=== PATIENT | female | born 1945 | race Caucasian/White ===

== ENCOUNTER 2020-09-08 21:25 | Inpatient (IN) | payer MEDICARE ==
[2020-09-08 22:42] LABS: Basophils # (A) 0.1 k/uL (0-0.2); Basophils % (A) 1 %; Eosinophils # (A) 0.5 k/uL (0-0.7); Eosinophils % (A) 7 %; HCT 41.2 % (34.0-46.0); HGB 14.1 gm/dL (11.4-16.0); Lymphocytes # (A) 2.5 k/uL (1.0-4.8); Lymphocytes % (A) 34 %; MCH 32.4 pg (25.0-35.0); MCHC 34.2 g/dL (31.0-37.0); MCV 94.9 fL (80.0-100.0); Mean Platelet Volume 7.9; Monocytes # (A) 0.3 k/uL (0-1.0); Monocytes % (A) 4 %; Neutrophils # (A) 3.7 k/uL (1.3-7.7); Neutrophils % (A) 52 %; Platelet Count 115 k/uL (150-450); RBC 4.35 m/uL (3.80-5.40); RDW 13.7 % (11.5-15.5); WBC 7.2 k/uL (3.8-10.6)
[2020-09-08 22:55] LABS: Albumin 4.5 g/dL (3.5-5.0); Calcium 9.4 mg/dL (8.4-10.2); Potassium 3.9 mmol/L (3.5-5.1); Total Bilirubin 1.9 mg/dL (0.2-1.3); Total Protein 7.1 g/dL (6.3-8.2)
[2020-09-08 23:03] LABS: Partial Thromboplastin Time 24.3 sec (22.0-30.0); Prothrombin Time 10.8 sec (9.0-12.0)
--- NOTE | 2020-09-08 23:13 | ED ---
Neuro HPI - General Chief Complaint: Neuro Symptoms/Deficit Stated Complaint: R Side Numbness Time Seen by Provider: 09/08/20 22:03 Source: patient, family Mode of arrival: wheelchair Limitations: physical limitation - History of Present Illness Is the patient presenting with stroke symptoms?: No Last Known Well Date: 09/08/20 Last Known Well Time: 19:30 Initial Comments: 's patient is a 74-year-old woman who presents with complaint of right sided numbness. She states that it had come on tonight at 7:30 while she was painting. She states the symptoms lasted about 20 minutes and resolved spontaneously. She did take aspirin. Patient had similar set of symptoms that had developed on Friday area and she was seen at another hospital where she had evaluation and was found to have hypomagnesemia. She was given dose of magnesium and was discharged. Patient denies headache or chest pain. No other associated symptoms. She does state she feels back at her baseline currently. Location: right face, right arm, right leg History of same: Yes Place: home Severity: mild Quality: numb Improves With: time Worsens With: none On Anticoagulants: No Context: sudden onset Associated Symptoms: denies other symptoms Treatments Prior to Arrival: Aspirin - Related Data Home Medications: Home Medications Medication Instructions Recorded Confirmed Aspirin EC [Ecotrin Low Dose] 81 mg PO HS 09/08/20 09/08/20 Metoprolol Tartrate [Lopressor] 100 mg PO BID 09/08/20 09/08/20 Valsartan 320 mg PO DAILY 09/08/20 09/08/20 allopurinoL [Zyloprim] 300 mg PO BID 09/08/20 09/08/20 amLODIPine [Norvasc] 10 mg PO DAILY 09/08/20 09/08/20 hydroCHLOROthiazide [Hydrodiuril] 25 mg PO DAILY 09/08/20 09/08/20 metFORMIN HCL 500 mg PO BID 09/08/20 09/08/20 Allergies/Adverse Reactions: Allergies Allergy/AdvReac Type Severity Reaction Status Date / Time diphenhydramine Allergy Rash/Hives Verified 09/08/20 23:19 [From Benadryl] iodine Allergy Rash/Hives Verified 09/08/20 23:19 shellfish derived [Shellfish] Allergy Nausea & Verified 09/08/20 23:19 Vomiting Review of Systems ROS Statement: Those systems with pertinent positive or pertinent negative responses have been documented in the HPI. ROS Other: All systems not noted in ROS Statement are negative. Constitutional: Denies: fever, chills Eyes: Denies: eye pain, vision change ENT: Denies: hearing loss Respiratory: Denies: cough, dyspnea Cardiovascular: Denies: chest pain, palpitations, orthopnea, edema, syncope Gastrointestinal: Denies: abdominal pain, vomiting, diarrhea Genitourinary: Denies: dysuria, hematuria Musculoskeletal: Denies: back pain Skin: Denies: rash Neurological: Reports: numbness. Denies: headache, weakness, paresthesias, confusion, vertigo Hematological/Lymphatic: Denies: easy bleeding General Exam Limitations: physical limitation General appearance: alert, in no apparent distress Head exam: Present: atraumatic, normocephalic Eye exam: Present: normal appearance, PERRL, EOMI. Absent: scleral icterus, conjunctival injection, nystagmus ENT exam: Present: normal oropharynx Neck exam: Present: normal inspection, full ROM Respiratory exam: Present: normal lung sounds bilaterally. Absent: respiratory distress, wheezes, rales, rhonchi, stridor Cardiovascular Exam: Present: regular rate, normal rhythm, systolic murmur. Absent: diastolic murmur, rubs, gallop GI/Abdominal exam: Present: soft. Absent: distended, tenderness, guarding, rebound, rigid, mass Extremities exam: Present: normal inspection, normal capillary refill. Absent: pedal edema, calf tenderness Back exam: Present: normal inspection. Absent: CVA tenderness (R), CVA tenderness (L) Neurological exam: Present: alert, oriented X3, CN II-XII intact. Absent: motor sensory deficit Skin exam: Present: warm, dry, intact, normal color. Absent: rash Stroke MDM - Lab Data Result diagrams: 09/08/20 22:25 09/08/20 22:25 Lab Results 09/08/20 09/08/20 09/08/20 Range/Units 22:25 22:25 22:25 WBC 7.2 (3.8-10.6) k/uL RBC 4.35 (3.80-5.40) m/uL Hgb 14.1 (11.4-16.0) gm/dL Hct 41.2 (34.0-46.0) % MCV 94.9 (80.0-100.0) fL MCH 32.4 (25.0-35.0) pg MCHC 34.2 (31.0-37.0) g/dL RDW 13.7 (11.5-15.5) % Plt Count 115 L (150-450) k/uL MPV 7.9 Neutrophils % 52 % Lymphocytes % 34 % Monocytes % 4 % Eosinophils % 7 % Basophils % 1 % Neutrophils # 3.7 (1.3-7.7) k/uL Lymphocytes # 2.5 (1.0-4.8) k/uL Monocytes # 0.3 (0-1.0) k/uL Eosinophils # 0.5 (0-0.7) k/uL Basophils # 0.1 (0-0.2) k/uL PT 10.8 (9.0-12.0) sec INR 1.0 (<1.2) APTT 24.3 (22.0-30.0) sec Sodium 135 L (137-145) mmol/L Potassium 3.9 (3.5-5.1) mmol/L Chloride 98 (98-107) mmol/L Carbon Dioxide 22 (22-30) mmol/L Anion Gap 15 mmol/L BUN 28 H (7-17) mg/dL Creatinine 1.00 (0.52-1.04) mg/dL Est GFR (CKD-EPI)AfAm 64 (>60 ml/min/1.73 sqM) Est GFR (CKD-EPI)NonAf 56 (>60 ml/min/1.73 sqM) Glucose 190 H (74-99) mg/dL Calcium 9.4 (8.4-10.2) mg/dL Total Bilirubin 1.9 H (0.2-1.3) mg/dL AST 56 H (14-36) U/L ALT 55 H (4-34) U/L Alkaline Phosphatase 138 H (38-126) U/L Troponin I (0.000-0.034) ng/mL Total Protein 7.1 (6.3-8.2) g/dL Albumin 4.5 (3.5-5.0) g/dL 09/08/ Range/Units 22:25 WBC (3.8-10.6) k/uL RBC (3.80-5.40) m/uL Hgb (11.4-16.0) gm/dL Hct (34.0-46.0) % MCV (80.0-100.0) fL MCH (25.0-35.0) pg MCHC (31.0-37.0) g/dL RDW (11.5-15.5) % Plt Count (150-450) k/uL MPV Neutrophils % % Lymphocytes % % Monocytes % % Eosinophils % % Basophils % % Neutrophils # (1.3-7.7) k/uL Lymphocytes # (1.0-4.8) k/uL Monocytes # (0-1.0) k/uL Eosinophils # (0-0.7) k/uL Basophils # (0-0.2) k/uL PT (9.0-12.0) sec INR (<1.2) APTT (22.0-30.0) sec Sodium (137-145) mmol/L Potassium (3.5-5.1) mmol/L Chloride (98-107) mmol/L Carbon Dioxide (22-30) mmol/L Anion Gap mmol/L BUN (7-17) mg/dL Creatinine (0.52-1.04) mg/dL Est GFR (CKD-EPI)AfAm (>60 ml/min/1.73 sqM) Est GFR (CKD-EPI)NonAf (>60 ml/min/1.73 sqM) Glucose (74-99) mg/dL Calcium (8.4-10.2) mg/dL Total Bilirubin (0.2-1.3) mg/dL AST (14-36) U/L ALT (4-34) U/L Alkaline Phosphatase (38-126) U/L Troponin I <0.012 (0.000-0.034) ng/mL Total Protein (6.3-8.2) g/dL Albumin (3.5-5.0) g/dL - EKG Data -: EKG Interpreted by Ne EKG shows normal: sinus rhythm, axis, intervals (Normal), QRS complexes (Normal) Rate: normal (Rate 81 bpm) Interpretation: nonspecific ST-T wave changes Past Medical History Past Medical History: Diabetes Mellitus, Hypertension History of Any Multi-Drug Resistant Organisms: None Reported Past Surgical History: Appendectomy, Hysterectomy Additional Past Surgical History / Comment(s): shoulder. cyst wrist Past Psychological History: No Psychological Hx Reported Smoking Status: Never smoker Past Alcohol Use History: None Reported Past Drug Use History: None Reported Course Vital Signs 09/08/20 09/08/20 09/08/20 21:36 21:54 22:00 Temperature 98.5 F Pulse Rate 88 80 75 Respiratory 18 18 18 Rate Blood Pressure 137/73 128/59 126/60 O2 Sat by Pulse 96 97 95 Oximetry 09/08/20 09/09/20 23:00 00:00 Temperature 98.0 F Pulse Rate 78 78 Respiratory 18 18 Rate Blood Pressure 127/64 127/71 O2 Sat by Pulse 96 96 Oximetry Disposition Clinical Impression: Transient cerebral ischemia Disposition: ADMITTED IP TO THIS [facility] Condition: Good Is patient prescribed a controlled substance at d/c from ED?: No
--- NOTE | 2020-09-08 23:26 | CT ---
EXAMINATION TYPE: CT brain wo con for TPA DATE OF EXAM: 09/08/2020 COMPARISON: None HISTORY: Right sided numbness CT DLP: mGycm Automated exposure control for dose reduction was used. Ventricles have normal size. There is no mass effect nor midline shift. There is no sign of intracran ial hemorrhage. There is mild cerebral atrophy. The calvarium is intact. IMPRESSION: Mild atrophy. No acute intracranial abnormality.
--- NOTE | 2020-09-08 23:27 | XR ---
EXAMINATION TYPE: XR chest 2V DATE OF EXAM: 09/08/2020 COMPARISON: NONE HISTORY: Altered mental status TECHNIQUE: 2 views FINDINGS: Heart and mediastinum are normal. Lungs are clear. Diaphragm is normal. Bony thorax is inta ct. There are chest leads. IMPRESSION: Normal chest. Normal heart.
[2020-09-08] MEDS ORDERED: SODIUM CHLORIDE 0.9% 1,000 ML IV SCH (23:45)
[2020-09-09] MEDS: DOCUSATE 100 MG CAP PO SCH ×2 (01:09→09:56)
[2020-09-09] MEDS ORDERED: FAMOTIDINE 20 MG TAB PO SCH (09:00)
[2020-09-09] MEDS ORDERED: METOPROLOL TARTRATE 50 MG TAB PO SCH (09:00)
[2020-09-09] MEDS ORDERED: allopurinoL 300 MG TAB PO SCH (09:00)
[2020-09-09] MEDS ORDERED: ASPIRIN 325 MG TAB PO SCH (09:00)
[2020-09-09] MEDS ORDERED: metFORMIN 500 MG TAB PO SCH (09:00)
[2020-09-09] MEDS ORDERED: VALSARTAN 160 MG TAB PO SCH (09:00)
[2020-09-09] MEDS ORDERED: hydroCHLOROthiazide 25 MG TAB PO SCH (09:00)
[2020-09-09] MEDS ORDERED: amLODIPine 10 MG TAB PO SCH (09:00)
--- NOTE | 2020-09-09 09:42 | P.HPIM ---
History of Present Illness 74-year-old pleasant female came in with complaints of tingling numbness in the entire right of the body including right lower face. The symptoms started about the 3 days ago on and off and the lasted [address] of the head did not show any significant intracranial abnormality. Patient is on multiple antiarrhythmic medications her blood pressure is well controlled at this time at times it was low-normal because of which I'm discontinued and hydrochlorothiazide , mildly Sodium is borderline at 135 and the mildly dehydrated with elevated BUN of 28. Patient is also on metformin which will be held until seen by neurology as mid they may already MRI. Also symptoms resolved at this time patient denied any weakness headaches migraine seizure history. Denied any nausea vomiting. CT of the head was done which did not show any intracranial abnormality acutely. Patient has mild low platelet count of 1 15,000 and highly elevated AST and ALT. REVIEW OF SYSTEMS: CONSTITUTIONAL: No fever, no malaise, no fatigue. HEENT: No recent visual problems or hearing problems. Denied any sore throat. CARDIOVASCULAR: No chest pain, orthopnea, PND, no palpitations, no syncope. PULMONARY: No shortness of breath, no cough, no hemoptysis. GASTROINTESTINAL: No diarrhea, no nausea, no vomiting, no abdominal pain. NEUROLOGICAL: As mentioned in HPI HEMATOLOGICAL: Denies any bleeding or petechiae. GENITOURINARY: Denies any burning micturition, frequency, or urgency. MUSCULOSKELETAL/RHEUMATOLOGICAL: Denies any joint pain, swelling, or any muscle pain. ENDOCRINE: Denies any polyuria or polydipsia. The rest of the 14-point review of systems is negative. PHYSICAL EXAMINATION: GENERAL: The patient is alert and oriented x3, not in any acute distress. Well developed, well nourished. HEENT: Pupils are round and equally reacting to light. EOMI. No scleral icterus. No conjunctival pallor. Normocephalic, atraumatic. No pharyngeal erythema. No thyromegaly. CARDIOVASCULAR: S1 and S2 present. No murmurs, rubs, or gallops. PULMONARY: Chest is clear to auscultation, no wheezing or crackles. ABDOMEN: Soft, nontender, nondistended, normoactive bowel sounds. No palpable organomegaly. MUSCULOSKELETAL: No joint swelling or deformity. EXTREMITIES: No cyanosis, clubbing, or pedal edema. NEUROLOGICAL: Gross neurological examination did not reveal any focal deficits. SKIN: No rashes. Assessment and plan -Possible transient ischemic attack involving the ventral postero-lateral nucleus of thalamus, patient will be continued on Aspirin for now now may need a dual antiplatelet therapy for 3 weeks followed by late Plavix but this decision will be left to neurology. Awaiting lipase panel carotid Doppler and echocardiogram. If all the workup can be done today and if cleared by neurology patient will be discharged today patient had a normal EKG except for some nonspecific ST-T wave changes patient doesn't have any chest pain. Patient does take 81 mg of aspirin at home presently on 325 mg of aspirin. Statin aspirin neurology -Mild nonspecific elevation of liver enzymes no further workup is necessary as the elevation is very mild. -Hypertension: Patient is mildly hyponatremic mild dehydration blood pressures are well controlled had good thiazide will be discontinued next - type 2 diabetes mellitus hold off on metformin for now on sliding scale for now -Mild thrombocytopenia DVT prophylaxis: Ambulation Past Medical History Past Medical History: Diabetes Mellitus, Hypertension History of Any Multi-Drug Resistant Organisms: None Reported Past Surgical History: Appendectomy, Hysterectomy Additional Past Surgical History / Comment(s): shoulder. cyst wrist Past Psychological History: No Psychological Hx Reported Smoking Status: Never smoker Past Alcohol Use History: None Reported Past Drug Use History: None Reported Medications and Allergies Home Medications Medication Instructions Recorded Confirmed Type Aspirin EC [Ecotrin Low Dose] 81 mg PO HS 09/08/20 09/08/20 History Metoprolol Tartrate [Lopressor] 100 mg PO BID 09/08/20 09/08/20 History Valsartan 320 mg PO DAILY 09/08/20 09/08/20 History allopurinoL [Zyloprim] 300 mg PO BID 09/08/20 09/08/20 History amLODIPine [Norvasc] 10 mg PO DAILY 09/08/20 09/08/20 History metFORMIN HCL 500 mg PO BID 09/08/20 09/08/20 History Allergies Allergy/AdvReac Type Severity Reaction Status Date / Time diphenhydramine Allergy Rash/Hives Verified 09/08/20 23:19 [From Benadryl] iodine Allergy Rash/Hives Verified 09/08/20 23:19 shellfish derived [Shellfish] Allergy Nausea & Verified 09/08/20 23:19 Vomiting Physical Exam Vitals: Vital Signs Temp Pulse Resp BP Pulse Ox 09/09/20 07:31 76 16 128/51 96 09/09/20 07:00 98 18 132/72 98 09/09/20 03:41 80 16 138/69 99 09/09/20 00:00 98.0 F 78 18 127/71 96 09/08/20 23:00 78 18 127/64 96 09/08/20 22:00 75 18 126/60 95 09/08/20 21:54 80 18 128/59 97 09/08/20 21:36 98.5 F 88 18 137/73 96 Intake and Output 09/08/20 09/09/20 09/09/20 22:59 06:59 14:59 Other: Weight 93.894 kg Results CBC & Chem 7: 09/08/20 22:25 09/08/20 22:25 Labs: Abnormal Lab Results - Last 24 Hours (Table) 09/08/20 09/08/20 Range/Units 22:25 22:25 Plt Count 115 L (150-450) k/uL Sodium 135 L (137-145) mmol/L BUN 28 H (7-17) mg/dL Glucose 190 H (74-99) mg/dL Total Bilirubin 1.9 H (0.2-1.3) mg/dL AST 56 H (14-36) U/L ALT 55 H (4-34) U/L Alkaline Phosphatase 138 H (38-126) U/L
--- NOTE | 2020-09-09 09:43 | P.DS ---
Providers Date of admission: 09/08/20 23:58 Attending physician: Staci Smith Consults: 09/08/20 23:56 Consult Physician Routine Consulting Provider: Billy Somers Consult Reason/Comments: Recurrent TIA Do you want consulting provider notified?: Yes Primary care physician: Levi West Hospital Course: As mentioned in HPI Patient Condition at Discharge: Good Plan - Discharge Summary New Discharge Prescriptions: Continue metFORMIN HCL 500 mg PO BID Metoprolol Tartrate [Lopressor] 100 mg PO BID Aspirin EC [Ecotrin Low Dose] 81 mg PO HS allopurinoL [Zyloprim] 300 mg PO BID Valsartan 320 mg PO DAILY amLODIPine [Norvasc] 10 mg PO DAILY Discontinued hydroCHLOROthiazide [Hydrodiuril] 25 mg PO DAILY Discharge Medication List Aspirin EC [Ecotrin Low Dose] 81 mg PO HS 09/08/20 [History] Metoprolol Tartrate [Lopressor] 100 mg PO BID 09/08/20 [History] Valsartan 320 mg PO DAILY 09/08/20 [History] allopurinoL [Zyloprim] 300 mg PO BID 09/08/20 [History] amLODIPine [Norvasc] 10 mg PO DAILY 09/08/20 [History] metFORMIN HCL 500 mg PO BID 09/08/20 [History] Follow up Appointment(s)/Referral(s): Levi West MD [Primary Care Provider] - 3 Days Daniel Burgos MD [STAFF PHYSICIAN] - 1 Week Discharge Disposition: HOME SELF-CARE
[2020-09-09] MEDS ORDERED: CLOPIDOGREL 75 MG TAB PO STA (10:50)
[2020-09-09] MEDS ORDERED: ATORVASTATIN 40 MG TAB PO ONE (10:53)
[2020-09-09 11:12] LABS: Magnesium 1.6 mg/dL (1.6-2.3)
[2020-09-09 11:40] LABS: Glucose,Whole Blood 192 mg/dL (75-99)
--- NOTE | 2020-09-09 11:58 | P.CNNES ---
History of Present Illness Consult date: 09/09/20 Requesting physician: Levi Mart Reason for Consult: recurrent TIA History of Present Illness: This is a 74-year-old woman with medical history of diabetes mellitus type 2 for at least 10 years, hypertension (for 25 years) who presented emergency department on 09/08/2020 for right-sided numbness. She is accompaneid with her daughter and her . She stated that the yesterday around 7:30 while she was painting She had an episode where she had entire right sided numbness. The episode lasted possibly about the 20 minutes. She could not tell me whether it started initially in one spot then the an evolved initially she stated started in the hand and later she said that started in the leg and worked its way up. But pressure she said is that it involved the entire right side even the face. She didn't have any warning signs prior to the episode. Didn't have any headache at. She did have left eye pain that she's been having during the day and she took Aleve. Denies any nausea vomiting any difficulty getting her words out and difficulty swallowing. With this episode she feels like she is unsteady walk-in. She feels she is back to baseline. She said that she had a similar episode this past Friday and it lasted about 15 minutes and then she went to the local hospital where she resides and there she had a CT of the head and chest x-ray and some blood levels in the her magnesium was found that was low and she was told was that due to that the low magnesium and was discharged home. Also an episode one week ago (Friday) where she had the numbness in the right hand and the right side of the lip and was very brief and resolved. She said that the today she had an episode that she seeing an object on her eyes when she is looking and she feels that the pictures distorted lasting less than 5 minutes. Rarely she feels she is back to baseline. Patient stated that she is on aspirin 81 mg for long time but she is not on any statins. She denies tobacco use, alcohol use or any illicit drug use. Patient denies any history of stroke or TIAs in the past. There is a family history of factor V Leiden deficiency but she was never officially diagnosed with that. Patient on medication consist of metformin, aspirin 81 mg, amlodipine, allopurinol Some of the workup in the hospital consisted of: Initial vital signs his blood pressure of 137/73, heart rate of 88, respiratory of 18, temperature of 98.5 Fahrenheit oral and pulse ox of 95% room air. CT of the head is reported as mild atrophy. No acute intracranial abnormality. I personally try to review the images but there is no images uploaded. EKG is reported as normal sinus rhythm. Nonspecific T wave abnormality. Abnormal EKG. CBC with differential the only pertinent positive is the platelet is 115 which is slightly low otherwise unremarkable. Chemistry panel is his sodium is 135 which is slightly low otherwise AST is 56 and ALT of 55 with slightly elevated. Calcium is 9.4. Review of Systems Review of system: The 12 point system was reviewed and apparent positive and negative per HPI. Past Medical History Past Medical History: Diabetes Mellitus, Hypertension History of Any Multi-Drug Resistant Organisms: None Reported Past Surgical History: Appendectomy, Hysterectomy Additional Past Surgical History / Comment(s): shoulder. cyst wrist Past Psychological History: No Psychological Hx Reported Smoking Status: Never smoker Past Alcohol Use History: None Reported Past Drug Use History: None Reported Medications and Allergies Home Medications Medication Instructions Recorded Confirmed Type Metoprolol Tartrate [Lopressor] 100 mg PO BID 09/08/20 09/08/20 History Valsartan 320 mg PO DAILY 09/08/20 09/08/20 History allopurinoL [Zyloprim] 300 mg PO BID 09/08/20 09/08/20 History amLODIPine [Norvasc] 10 mg PO DAILY 09/08/20 09/08/20 History metFORMIN HCL 500 mg PO BID 09/08/20 09/08/20 History Aspirin EC [Ecotrin Low Dose] 81 mg PO HS #0 09/09/20 09/08/20 Rx Atorvastatin [Lipitor] 40 mg PO HS #30 tablet 09/09/20 Rx Clopidogrel [Plavix] 75 mg PO DAILY #30 tablet 09/09/20 Rx Allergies Allergy/AdvReac Type Severity Reaction Status Date / Time diphenhydramine Allergy Rash/Hives Verified 09/08/20 23:19 [From Benadryl] iodine Allergy Rash/Hives Verified 09/08/20 23:19 shellfish derived [Shellfish] Allergy Nausea & Verified 09/08/20 23:19 Vomiting Physical Examination - Vital Signs Vital Signs: Vital Signs Temp Pulse Resp BP Pulse Ox 09/09/20 07:31 76 16 128/51 96 09/09/20 07:00 98 18 132/72 98 09/09/20 03:41 80 16 138/69 99 09/09/20 00:00 98.0 F 78 18 127/71 96 09/08/20 23:00 78 18 127/64 96 09/08/20 22:00 75 18 126/60 95 09/08/20 21:54 80 18 128/59 97 09/08/20 21:36 98.5 F 88 18 137/73 96 Intake and Output 09/08/20 09/09/20 09/09/20 22:59 06:59 14:59 Other: Weight 93.894 kg GENERAL: The patient is lying in bed and is not in acute distress. CHEST: The heart rate is regular rate rhythm. No murmurs to auscultation. No carotid bruit bilaterally. LUNG: Clear to auscultation bilaterally no wheezing noted throughout. Not labored breathing. ABDOMEN/GI: Bowel sounds present in all 4 quadrants. No tenderness to palpation throughout. NEUROLOGICAL: Higher mental function: The patient is awake, alert, oriented to self, place and time. Patient is following commands. No aphasia and no neglect. Cranial nerves: The pupils are round, equal and reactive to light and accommodation. Visual skinner are full to confrontation throughout. Extraocular movement is intact no nystagmus is noted. Facial sensation is normal to touch throughout. The facial strength is normal throughout. Hearing is normal bilaterally to hand rub. Tongue is midline and moved [id number] without any difficulty. No dysarthria is noted. Shoulder shrug is normal bilaterally. Motor: Gait is normal with normal arm swings. The strength is 5 over 5 throughout. Normal tone and bulk. Cerebellum: Normal finger to nose heel to cardona bilaterally. Sensation: Sensation is normal to touch throughout. Reflexes (right/left): 2+ throughout.. Plantars are downgoing bilaterally. Results - Laboratory Findings CBC and BMP: 09/08/20 22:25 09/08/20 22:25 Abnormal Lab Findings: Abnormal Labs 09/08/20 09/08/20 22:25 22:25 Plt Count 115 L Sodium 135 L BUN 28 H Glucose 190 H Total Bilirubin 1.9 H AST 56 H ALT 55 H Alkaline Phosphatase 138 H Assessment and Plan Assessment: * Recurrent right sided numbness-involing entire right side and face (had epi sode yesterday lasting 20 minutes, this past friday lasting 15 minutes and brief a week ago). Seems likely due to Transient ischemic attack. Cannot rule out seizures * Mild elevated liver function test * Diabetes mellitus Plan: In the ED the patient was started on aspirin 325mg daily which was increased from her home medication of 81mg. I will continue her home dose of ASA 81mg and in addition will add Plavix 75mg daily. The patient to be on dual antiplatelets for 21 days and after that to stop ASA and continue Plavix indefinetly. I loaded the patient on Plavix 300mg once. I started the patient on Lipitor 20 mg daily (low dose since has mild elevated LFT's) for secondary stroke prophylaxis. 2-D echo, carotid duplex and lipid panel are ordered and are pending. PT, OT and REPRODUCTIVE HEALTHCARE ASSISTANT are consulted I ordered vitamin B12, folate, TSH level, hemoglobin A1c, magnesium level. Patient was given a script MRI Brain as outpatient (since likely not be done during this weekend in our facility), neurology consult script as outpatient, EEG 2 1/2 hour outpatient to attempt to capture these episodes. Every 4 hours neuro checks Continuous cardiac monitoring We'll defer the rest of the medical measure the primary team. The patient was notified to follow-up with a neurologist within 1-2 weeks as outpatient and an Milieu Technician. The plan is discussed with the patient's and her family members who are at bedside. Also discussed with her nurse. Thank you for the consultation. UPDATE: 2-D echo was reported as moderate concentric left ventricular hypertrophy. Ejection fraction of 55-60%. Normal left atrial size. Carotid duplex was reported as there is antegrade flow in the vertebral arteries. The images and measurements suggest up to 50% stenosis in both inter nal carotid arteries. There is irregular plaque formation. Billy Somers M.D. Neuro-hospitalist Time with Patient: Greater than 30
[2020-09-09] MEDS ORDERED: INSULIN ASPART (NovoLOG) 100 UNIT/ML VIAL SQ SCH (12:30)
[2020-09-09 12:38] LABS: Chol/HDL Ratio 5.93; LDL Cholesterol,Calculated 69.2 mg/dL (0.0-131.0); VLDL Calculation 73.8 mg/dL (5.00-40.00)
[2020-09-09 12:40] VITALS: BP 132/62; PULSE 74; RESP 22; TEMP 98.3
--- NOTE | 2020-09-09 14:40 | ECHOF ---
Referral Reason:recurrent TIAs MEASUREMENTS -------- HEIGHT: 165.1 cm WEIGHT: 93.9 kg BP: IVSd: 1.4 cm (0.6 - 1.1) LVIDd: 3.9 cm (3.9 - 5.3) LVPWd: 1.3 cm (0.6 - 1.1) IVSs: 1.6 cm LVIDs: 1.9 cm LVPWs: 1.6 cm LAESV Index (A-L): 24.81 ml/m Ao Diam: 3.2 cm (2.0 - 3.7) AV Cusp: 1.2 cm (1.5 - 2.6) LA Diam: 3.6 cm (2.7 - 3.8) MV EXCURSION: 14.924 mm (> 18.000) MV EF SLOPE: 49 mm/s (70 - 150) EPSS: 0.6 cm MV E Ferdinand: 0.99 m/s MV DecT: 229 ms MV A Ferdinand: 0.97 m/s MV E/A Ratio: 1.02 AV maxP.88 mmHg AV meanP.97 mmHg AR PHT: 1121 ms RAP: 5.00 mmHg RVSP: 21.71 mmHg FINDINGS -------- Sinus rhythm. This was a technically difficult study with suboptimal views. The left ventricular size is normal. There is moderate concentric left ventricular hypertrophy. O verall left ventricular systolic function is normal with, an EF between 55 - 60 %. Normal LAP Grade 1 Diastolic Dysfunction. The right ventricle is normal in size. Normal LA size by volume 22+/-6 ml/m2. The right atrial size is normal. Lumason used Unable to visualize the septum. There is mild to moderate aortic valve sclerosis. Trace amount of aortic regurgitation. There is mild aortic stenosis present. Peak/mean gradient across the Aortic Valve is 25.88mmHg / 15.97mmHg. Mild mitral annular calcification present. Mild mitral regurgitation is present. The tricuspid valve appears structurally normal. Trace tricuspid regurgitation present. Right seferino tricular systolic pressure is normal at < 35 mmHg. There is no pulmonic regurgitation present. The aortic root size is normal. IVC Not well visulized. There is no pericardial effusion. CONCLUSIONS -------- 1. There is moderate concentric left ventricular hypertrophy. 2. Overall left ventricular systolic function is normal with, an EF between 55 - 60 %. 3. Normal LAP Grade 1 Diastolic Dysfunction. 4. Normal LA size by volume 22+/-6 ml/m2. 5. Unable to visualize the septum. 6. There is mild to moderate aortic valve sclerosis. 7. Trace amount of aortic regurgitation. 8. There is mild aortic stenosis present. 9. Peak/mean gradient across the Aortic Valve is 25.88mmHg / 15.97mmHg. 10. Mild mitral regurgitation is present. 11. Trace tricuspid regurgitation present. 12. There is no pericardial effusion. BUSINESS INTERN: Marialuisa Crain RDCS
--- NOTE | 2020-09-09 15:58 | US ---
EXAMINATION TYPE: US carotid duplex BILAT DATE OF EXAM: 09/09/2020 COMPARISON: NONE CLINICAL HISTORY: recurrent TIAs. TIA EXAM MEASUREMENTS: RIGHT: Peak Systolic Velocity (PSV) cm/sec ----- Right CCA: 41.2 ----- Right ICA: 59.2 ----- Right ECA: 67.1 ICA/CCA ratio: 1.4 RIGHT: End Diastole cm/sec ----- Right CCA: 11.3 ----- Right ICA: 15.6 ----- Right ECA: 0.0 LEFT: Peak Systolic Velocity (PSV) cm/sec ----- Left CCA: 51.4 ----- Left ICA: 60.1 ----- Left ECA: 97.7 ICA/CCA ratio: 1.2 LEFT: End Diastole cm/sec ----- Left CCA: 13.0 ----- Left ICA: 18.2 ----- Left ECA: 7.6 VERTEBRALS (direction of flow): Right Vertebral: Antegrade Left Vertebral: Antegrade Rhythm: Normal Mild heterogeneous plaque bilaterally without evidence of significant stenosis IMPRESSION: There is antegrade flow in the vertebral arteries. The images and measurements suggest up to 50% sten osis in both internal carotid arteries. There is irregular plaque formation. Criteria for Assigning % of Stenosis / Diameter reduction (Estimation based on the indirect measurements of the internal carotid artery velocities (ICA PSV). 1. Normal (no stenosis)=ICA PSV < 125 cm/s: ratio < 2.0: ICA EDV<40 cm/s. 2. Less than 50% stenosis=ICA PSV < 125 cm/s: ratio < 2.0: ICA EDV<40 cm/s. 3. 50 to 69% stenosis=ICA PSV of 125 to 230 cm/s: ration 2.0 ? 4.0: ICA EDV 40-100 cm/s. 4. Greater than 70% stenosis to near occlusion= ICA PSV > 230 cm/s: ratio > 4.0: ICA EDV > 100 cm/s. 5. Near occlusion= ICA PSV velocities may be low or undetectable: variable ratio and ICA EDV. 6. Total occlusion=unable to detect flow.
[2020-09-09 16:27] LABS: Chol/HDL Ratio 5.67
[2020-09-09 16:52] LABS: Folate, Serum 13.5 ng/mL
[2020-09-09] MEDS ORDERED: CYANOCOBALAMIN 1,000 MCG/ML 1 ML VIAL IM ONE (17:04)
[2020-09-09 21:26] LABS: Hemoglobin A1C 9.8 % (4.0-6.0)
[2020-09-10] MEDS ORDERED: ASPIRIN 81 MG PO SCH (09:00)
[2020-09-10] MEDS ORDERED: CLOPIDOGREL 75 MG TAB PO SCH (09:00)
[2020-09-10] MEDS ORDERED: FAMOTIDINE 20 MG TAB PO SCH (09:00)
[2020-09-10] MEDS ORDERED: ATORVASTATIN 20 MG TAB PO SCH (21:00)
[2020-09-10] MEDS ORDERED: ATORVASTATIN 40 MG TAB PO SCH (21:00)
== END 2020-09-09 16:54 | disposition home or self-care (01) | DRG 69 ==
LOC: EC 21:25 → 3SCARD 23:58
PROVIDERS: ADMIT Hospitalist; ATTEND Hospitalist
DX: G45.9 Transient cerebral ischemic attack, unspecified (principal); E87.1 Hypo-osmolality and hyponatremia; E11.9 Type 2 diabetes mellitus without complications; E83.42 Hypomagnesemia; E86.0 Dehydration; I10 Essential (primary) hypertension; Z79.02 Long term (current) use of antithrombotics/antiplatelets; Z79.82 Long term (current) use of aspirin; Z79.84 Long term (current) use of oral hypoglycemic drugs; Z79.899 Other long term (current) drug therapy; Z90.710 Acquired absence of both cervix and uterus; R74.01 Elevation of levels of liver transaminase levels; R94.4 Abnormal results of kidney function studies; D69.6 Thrombocytopenia, unspecified; Z83.2 Family history of diseases of the blood and blood-forming organs and certain disorders involving the immune mechanism
CPT/HCPCS: 36415; 70450; 71046; 80053; 80061; 82607; 82746; 82747; 83036; 83735; 84443; 84484; 85025; 85610; 85730; 93005; 93306; 93880; 99285

== ENCOUNTER → 2020-09-14 | Outpatient (CLI) | payer MEDICARE ==
--- NOTE | 2020-09-16 04:04 | MR ---
EXAMINATION TYPE: MR brain wo/w con DATE OF EXAM: 09/14/2020 COMPARISON: None HISTORY: recurrent numbness CONTRAST: Standard multiplanar, multisequence MRI departmental protocol utilizing 9 mL intravenous Gadavist bradley olinium contrast. Ventricles have normal size. There is no mass effect nor midline shift. There is no sign of intracran ial hemorrhage. Diffusion images show no evidence of an acute infarct. Diffusion images show some sca ttered small white matter high signal foci in the T2 and FLAIR images. Total number is approximately 20 and most of these measure 3 mm or less. The brainstem is intact. There is some mucosal thickening in the maxillary and ethmoid sinuses. There is no evidence of orbital mass. Contrast images show no pathologic enhancement. There is normal enhancement of the venous sinuses. Se lla turcica appears normal. Corpus callosum is intact. Optic chiasm appears normal. Pituitary stalk i s in the midline. IMPRESSION: Mild atrophy appropriate for age. Minimal white matter signal changes could relate to some mild micro vascular ischemia. No evidence of cortical infarct. Maxillary and ethmoid sinusitis.
== END | disposition home or self-care (01) ==
LOC: RADMRIMAIN 09:30
PROVIDERS: ATTEND Student in an Organized Health Care Education/Training Program
DX: R93.0 Abnormal findings on diagnostic imaging of skull and head, not elsewhere classified (principal); J32.0 Chronic maxillary sinusitis; J32.2 Chronic ethmoidal sinusitis
CPT/HCPCS: 70553; A9585

== ENCOUNTER → 2020-09-19 | Outpatient (CLI) | payer MEDICARE ==
--- NOTE | 2020-09-20 23:06 | EEG ---
ELECTROENCEPHALOGRAM REPORT PROCEDURE DATE: 09/19/2020. ELECTROENCEPHALOGRAM (EEG) REPORT: TECHNIQUE: This is a report from a prolonged 2.5 hour outpatient digital EEG performed using the 10/20 international electrode placement system. HISTORY: TIA (right-sided facial weakness and upper extremity numbness). OTHER MEDICAL HISTORY: Includes diabetes, hypertension. CURRENT MEDICATIONS: Metformin, Norvasc, Zyloprim, valsartan, Lopressor, Plavix, Lipitor, aspirin. FINDINGS: Recording start time: 09/19/2020 at 9:10 am. Recording end time: 09/19/2020 at 11:40 a.m. EVENTS: During this prolonged 2.5 hour outpatient digital EEG, no clinical or electrographic seizures were recorded. Please note that interpretation was performed at 5-microvolt sensitivity. BACKGROUND: The background activity consisted of 8-9 hertz rhythmic waveforms symmetric seen through both posterior quadrants. ACTIVATION: Hyperventilation: Not performed. Photic stimulation: Symmetric driving seen. Sleep: Stages I and II sleep noted. ABNORMALITIES: None. IMPRESSION: Normal prolonged 2.5 hour outpatient digital video EEG. No clinical or electrographic seizures were recorded. No epileptiform activity was present. MMODL / IJN: [id number] /
== END ==
LOC: NEUROMAIN 07:52
PROVIDERS: ATTEND Student in an Organized Health Care Education/Training Program
DX: R41.0 Disorientation, unspecified (principal); G40.909 Epilepsy, unspecified, not intractable, without status epilepticus; Z88.8 Allergy status to other drugs, medicaments and biological substances; Z91.041 Radiographic dye allergy status; Z91.013 Allergy to seafood
CPT/HCPCS: 95713